=== PATIENT | female | born 1975 ===

== ENCOUNTER 2023-09-28 11:04 | Emergency (ER) | payer OTHER, SELFPAY ==
[2023-09-28] VITALS (11 sets, daily range): BP systolic 104–152; BP diastolic 69–106; PULSE 70–99; RESP 18; TEMP 35.9; O2SAT 95–100; BMI 35.8
--- NOTE | 2023-09-28 11:34 | CRLHL7_ITS ---
For Patients: As a result of the Century Cures Act, medical imaging exams and procedure reports are released immediately into your electronic medical record. You may view this report before your referring provider. If you have questions, please contact your health care provider. INDICATION: Right upper quadrant pain COMPARISON: none TECHNIQUE: Real time taylor scale imaging and color Doppler analysis was performed of the right upper quadrant. FINDINGS: The patient`s liver is of normal size and has uniform echogenicity. There is a normal appearance of the hepatic IVC and proximal abdominal aorta. There is no evidence of ascites. The gallbladder is of normal size and there is no evidence of intraluminal stones or sludge. The gallbladder wall measures 2.2 mm in thickness. The common bile duct is of normal size and measures 4.2 mm in diameter at the level of the victorina hepatis. The pancreas appears normal. There is no evidence of a stone or hydronephrosis within the right kidney. The right kidney measures 11.7 cm in length. IMPRESSION: Normal right upper quadrant ultrasound. Dictated by Vinayak Meek MD @ 09/28/2023 12:52:09 PM (Electronically Signed)
--- NOTE | 2023-09-28 11:35 | ED.GENADULT ---
HPI - General Adult General Chief complaint: Abdominal Pain Stated complaint: Pain in sternum Time Seen by Provider: 09/28/23 11:12 Source: patient Mode of arrival: ambulatory Limitations: no limitations History of Present Illness HPI narrative: 48-year-old female coming in today complaining of right upper quadrant and epigastric abdominal pain that started 3 days ago. Pain comes and goes. Eating makes it worse. Pain radiates a little bit into the back and into the epigastric region. She denies nausea or vomiting. No fevers or chills. Had an episode of loose stools the other day. No difficulty with urination. Past medical history significant for hypertension, PCOS, GERD. Patient is on Zyrtec, famotidine, hydrochlorothiazide, lisinopril, metformin. Patient denies any intra-abdominal surgery. Related Data Home Medications Medication Instructions Recorded Confirmed cetirizine 10 mg tablet (24Hour 10 mg PO DAILY 09/28/23 09/28/23 Allergy) famotidine 20 mg tablet 20 mg PO DAILY 09/28/23 09/28/23 hydrochlorothiazide 12.5 mg capsule 12.5 mg PO DAILY 09/28/23 09/28/23 lisinopril 20 mg tablet 20 mg PO DAILY 09/28/23 09/28/23 metformin 500 mg tablet,extended 500 mg PO DAILY 09/28/23 09/28/23 release 24 hr Allergies Allergy/AdvReac Type Severity Reaction Status Date / Time avocado Allergy Severe Anaphylaxis Verified 09/28/23 11:22 morphine AdvReac Severe Full body Verified 09/28/23 11:22 itching silver AdvReac Intermediate Rash Verified 09/28/23 11:22 [From Tegaderm AG Mesh] Review of Systems Status of ROS: Reports: 10 or more systems reviewed and unremarkable except as noted in History and below PFSH PFS Social History Smoking Status: Former smoker How often do you have a drink containing alcohol: 2-4 times a month How many standard drinks containing alcohol do you have on a typical day: 1 or 2 AUDIT-C Alcohol total score: 2 Non-prescribed substance use: denies use Exam Narrative: Exam Narrative: Overweight, well-developed patient in no acute distress. Alert and oriented. Answers questions appropriately. Mood and affect are appropriate. Thoughts are goal oriented and rational. No tangential or magical thinking noted. Patient speaks in full sentences without needing to catch her breath. HEENT: Normocephalic atraumatic. Pupils are equally round reactive to light. Extraocular muscles are intact. Conjunctivae are moist without any icterus noted. Moist mucous membranes. Posterior pharynx is normal. Neck is soft without any lymphadenopathy or thyromegaly. No masses are appreciated. Cardiovascular: Heart is regular rate and rhythm S1 and S2 are present without any murmurs. Lungs: Clear to auscultation bilaterally no wheezes rhonchi or rales are appreciated. Patient takes deep breaths without any discomfort. Abdomen: Soft and nondistended with normal bowel sounds. No guarding or rebound. No masses or organomegaly appreciated. She does have right upper quadrant discomfort with a positive Alford sign. Extremities: Bilateral lower extremities are without edema. Normal DP and PT pulses. Skin: Well perfused without any obvious rashes. Const: Vital Signs, click to edit/add: Vital Signs - 24 hr 09/28/23 11:19 09/28/23 11:35 09/28/23 11:36 Temperature 96.7 F L Pulse Rate 84 85 Pulse Rate [Pulse Oximeter] 90 Respiratory Rate 18 Blood Pressure Blood Pressure [Ri ght Upper Arm] 152/106 H Pulse Oximetry 98 99 100 Oxygen Delivery Me thod Room Air 09/28/23 11:45 09/28/23 12:20 09/28/23 12:30 Temperature Pulse Rate 78 99 79 Pulse Rate [Pulse Oximeter] Respiratory Rate Blood Pressure Blood Pressure [Ri ght Upper Arm] Pulse Oximetry 98 97 97 Oxygen Delivery Me thod 09/28/23 12:33 09/28/23 12:45 09/28/23 13:00 Temperature Pulse Rate 78 70 80 Pulse Rate [Pulse Oximeter] Respiratory Rate Blood Pressure 118/78 Blood Pressure [Ri ght Upper Arm] Pulse Oximetry 98 98 95 Oxygen Delivery Me thod 09/28/23 13:02 Temperature Pulse Rate 81 Pulse Rate [Pulse Oximeter] Respiratory Rate Blood Pressure 104/69 Blood Pressure [Ri ght Upper Arm] Pulse Oximetry 97 Oxygen Delivery Me thod Course Course ED Course: IV established and labs drawn. Lab work was unremarkable aside from elevated CRP of 4.7. Right upper quadrant ultrasound was unremarkable. Patient did receive a dose of Maalox while she was here which did not seem to help her symptoms. Vital Signs Vital signs: Initial Vital Signs Temperature 96.7 F L 09/28/23 11:19 Temperature Source Temporal Artery Scan 09/28/23 11:19 Pulse Rate 90 09/28/23 11:19 Respiratory Rate 18 09/28/23 11:19 Blood Pressure 152/106 H 09/28/23 11:19 Blood Pressure Mean 121 H 09/28/23 11:19 Blood Pressure Position Semi-Fowlers 09/28/23 11:19 Pulse Oximetry 98 09/28/23 11:19 Oxygen Delivery Method Room Air 09/28/23 11:19 Vital Signs Temperature 96.7 F L 09/28/23 11:19 Pulse Rate 90 09/28/23 11:19 Respiratory Rate 18 09/28/23 11:19 Blood Pressure 152/106 H 09/28/23 11:19 Pulse Oximetry 98 09/28/23 11:19 Oxygen Delivery Method Room Air 09/28/23 11:19 Temperature 96.7 F L 09/28/23 11:19 Pulse Rate 81 09/28/23 13:02 Respiratory Rate 18 09/28/23 11:19 Blood Pressure 104/69 09/28/23 13:02 Pulse Oximetry 97 09/28/23 13:02 Oxygen Delivery Method Room Air 09/28/23 11:19 Medications Administered Medications: Discontinued Medications Generic Name Dose Route Start Last Admin Trade Name Freq PRN Reason Stop Dose Admin Lidocaine/Aluminum/Magnesium/Simeth 15 ml 09/28/23 12:30 09/28/23 12:43 Mag Hydrox/Aluminum Hyd/Simeth 30 Ml Oral.Susp PO 09/28/23 12:31 15 ml ONCE ONE Administration Medical Decision Making [facility] Narrative Medical decision making narrative: 48-year-old female with epigastric and right upper quadrant abdominal pain. Differential diagnoses at this time includes peptic ulcer disease, gastritis, gallbladder dysfunction. We did rule out cholelithiasis. There is no evidence of cholecystitis, hepatitis, or pancreatitis. Given the description and location of her symptoms, I do not think this represents a PE, acute coronary syndrome or dissection. At this time recommend switching famotidine to omeprazole 40 mg daily for the next several weeks. Follow-up with primary care to discuss EGD versus HIDA scan. Return to ER for fever, vomiting, worsening symptoms. Lab Data Lab results reviewed: Yes I reviewed the patient's lab results Labs: Lab Results 09/28/23 Range/Units 11:50 WBC 9.19 (4.50-11.00) K/uL RBC 4.44 (4.00-5.20) m/uL Hgb 12.9 (12.0-16.0) gm/dL Hct 38.7 (33.0-51.0) % MCV 87 (80-100) fL MCH 29 (26-34) pg MCHC 33 (32-36) gm/dL RDW Coeff of Nazia 13.2 (11.5-15.5) % Plt Count 286 (140-440) K/uL Neut % (Auto) 79.0 H (42.0-72.0) % Lymph % (Auto) 11.8 L (20-44) % [place] % (Auto) 6.1 (0.0-11.0) % Eos % (Auto) 2.5 (0.0-7.0) % Baso % (Auto) 0.2 (0.0-3.0) % Neut # (Auto) 7.30 H (1.7-7.0) K/uL Lymph # (Auto) 1.10 (0.90-2.90) K/uL [place] # (Auto) 0.60 (0.00-0.90) K/UL Eos # (Auto) 0.23 (0.00-0.50) K/uL Baso # (Auto) 0.02 (0.00-0.30) K/uL Abs Immat Gran (auto) 0.04 (0.00-0.30) K/uL Imm/Tot Granulo (auto) 0.4 % Sodium 137 (135-149) mmol/L Potassium 3.8 (3.6-5.1) mmol/L Chloride 103 (96-114) mmol/L Carbon Dioxide 25 (20-32) mmol/L Anion Gap 9 (7-15) mEq/L BUN 11 (5-24) mg/dL Creatinine 0.8 (0.5-1.5) mg/dL Estimated Creat Clear 79.63 Estimated GFR 90 ml/min Glucose 96 (60-115) mg/dL Lactate 0.8 (0.5-1.9) mmol/L Calcium 9.3 (8.4-10.6) mg/dL Total Bilirubin 0.4 (0.1-1.5) mg/dL Direct Bilirubin 0.0 (0.0-0.5) mg/dL AST 25 (12-35) U/L ALT 24 (4-35) U/L Alkaline Phosphatase 73 (40-150) U/L C-Reactive Protein 4.7 H (0.5-1.0) mg/dL Total Protein 7.7 (6.0-8.3) g/dL Albumin 4.5 (3.3-5.0) g/dL Lipase 85 (23-300) U/L Urine HCG, Qual Negative (Negative) Imaging Data US - abdomen: Attestation: I have reviewed the pertinent imaging results. Radiologist's impression: INDICATION: Right upper quadrant pain COMPARISON: none TECHNIQUE: Real time taylor scale imaging and color Doppler analysis was performed of the right upper quadrant. FINDINGS: The patient`s liver is of normal size and has uniform echogenicity. There is a normal appearance of the hepatic IVC and proximal abdominal aorta. There is no evidence of ascites. The gallbladder is of normal size and there is no evidence of intraluminal stones or sludge. The gallbladder wall measures 2.2 mm in thickness. The common bile duct is of normal size and measures 4.2 mm in diameter at the level of the victorina hepatis. The pancreas appears normal. There is no evidence of a stone or hydronephrosis within the right kidney. The right kidney measures 11.7 cm in length. IMPRESSION: Normal right upper quadrant ultrasound. Discharge Plan Discharge Clinical Impression: Abdominal pain Patient Disposition: Home, Self-Care Condition: Stable Additional Instructions: Your workup today was unremarkable. Causes of your pain could include gastritis which is an inflammation of the lining of the stomach, peptic ulcer disease which is an ulceration, or dysfunction of the gallbladder. I recommend you start omeprazole 40 mg daily for the next 3-4 weeks. I also recommend you follow-up with your primary care provider to discuss next steps which may include doing an upper endoscopy and/or a HIDA scan which looks at how well the gallbladder is functioning. If you develop a fever, vomiting or worsening pain, return to the ER. Prescriptions: No Action metformin 500 mg tablet extended release 24 hr 500 mg PO DAILY lisinopril 20 mg tablet 20 mg PO DAILY hydrochlorothiazide 12.5 mg capsule 12.5 mg PO DAILY cetirizine [24Hour Allergy] 10 mg tablet 10 mg PO DAILY famotidine 20 mg tablet 20 mg PO DAILY Follow Up/Referrals: Provider,Not a Local [Primary Care Provider] - Stand Alone Forms: [facility] [employer] Info Instructions
[2023-09-28 11:56] LABS: Lactate* 0.8 mmol/L (0.5-1.9)
[2023-09-28 12:02] LABS: Basophils Absolute Auto 0.02 K/uL (0.00-0.30); Basophils Percent Auto 0.2 % (0.0-3.0); Eosinophils Absolute Auto 0.23 K/uL (0.00-0.50); Eosinophils Percent Auto 2.5 % (0.0-7.0); Hematocrit 38.7 % (33.0-51.0); Hemoglobin* 12.9 gm/dL (12.0-16.0); Immature Granulocytes Abs Auto 0.04 K/uL (0.00-0.30); Immature Granulocytes Pct Auto 0.4 %; Lymphocytes Percent Auto 11.8 % (20-44); Mean Corpuscular HGB Conc 33 gm/dL (32-36); Mean Corpuscular Hemoglobin 29 pg (26-34); Mean Corpuscular Volume 87 fL (80-100); Monocytes Percent Auto 6.1 % (0.0-11.0); Platelet Count* 286 K/uL (140-440); RDW Coefficient of Variation % 13.2 % (11.5-15.5); Red Blood Count 4.44 m/uL (4.00-5.20); White Blood Count* 9.19 K/uL (4.50-11.00)
[2023-09-28 12:09] LABS: Slide Review Reflex No
[2023-09-28 12:16] LABS: Chloride* 103 mmol/L (96-114)
[2023-09-28 12:17] LABS: Albumin* 4.5 g/dL (3.3-5.0); Potassium* 3.8 mmol/L (3.6-5.1); Sodium* 137 mmol/L (135-149)
[2023-09-28 12:19] LABS: Creatinine* 0.8 mg/dL (0.5-1.5); Est. Creatinine Clearance* 79.63; Estimated Glomerular Filt Rate 90 ml/min; Ur HCG Qualitative* Negative (Negative)
[2023-09-28 12:20] LABS: Alkaline Phosphatase* 73 U/L (40-150); Anion Gap 9 mEq/L (7-15); Aspartate Amino Transferase* 25 U/L (12-35); Bilirubin Total* 0.4 mg/dL (0.1-1.5); Blood Urea Nitrogen* 11 mg/dL (5-24); Carbon Dioxide* 25 mmol/L (20-32); Total Protein* 7.7 g/dL (6.0-8.3)
[2023-09-28 12:21] LABS: Alanine Aminotransferase* 24 U/L (4-35); Calcium* 9.3 mg/dL (8.4-10.6); Glucose* 96 mg/dL (60-115); Lipase* 85 U/L (23-300)
[2023-09-28 12:23] LABS: C Reactive Protein* 4.7 mg/dL (0.5-1.0)
[2023-09-28] MEDS: MAG HYDROX/ALUMINUM HYD/SIMETH 30 ML ORAL.SUSP 15 ML PO (12:43)
== END 2023-09-28 13:33 | disposition home or self-care (01) ==
PROVIDERS: Emergency Provider Family Medicine
DX: R10.11 Right upper quadrant pain (principal)
CPT/HCPCS: 36415; 76705; 80048; 80076; 81025; 83605; 83690; 85025; 86140; 99283; 99284; A9270